=== PATIENT | male | born 1945 | race Caucasian/White ===

== ENCOUNTER → 2020-12-19 | Outpatient (CLI) | payer MEDICARE ==
[~2020-12-19] MED LIST: CENTRUM SILVER1 TAB PO; CLARITIN 1010 MG/TAB PO; COMPAZINE 110 MG/TAB PO; FLOMAX 0.40.4 MG/CAP PO; K-DUR 10 MEQ T10 MEQ PO; LASIX 40MG TABL40 MG PO; LEVAQUIN 5500 MG/TA1 PO; MEGACE ORAL40 MG/ML PO; NATURAL IRON65 MG PO; PREDNISONE 5MG5 MG PO; ROXICODONE 55 MG/TAB PO
== END ==
LOC: COL.RAD
DX: C61 Malignant neoplasm of prostate (principal)
CPT/HCPCS: A9503

== ENCOUNTER → 2021-05-15 | Outpatient (CLI) | payer MEDICARE | LOC: COL.RAD 09:09 | DX: C79.51 Secondary malignant neoplasm of bone (principal); M48.54XA Collapsed vertebra, not elsewhere classified, thoracic region, initial encounter for fracture; R59.0 Localized enlarged lymph nodes; C61 Malignant neoplasm of prostate | CPT/HCPCS: A9503; Q9967 ==

== ENCOUNTER 2021-08-23 07:34 | Outpatient (RCR) | payer MEDICARE ==
[~2021-08-23] VITALS: Ht 185.4 cm; Wt 101.9 kg
[2021-08-23] VITALS (9 sets, daily range): BP systolic 110–124; BP diastolic 60–68; PULSE 91–97; TEMP 98.6–99.9
[2021-08-23] MEDS ORDERED: CENTRUM SILVER1 TAB PO (09:16)
[2021-08-23] MEDS ORDERED: LASIX 40MG TABL40 MG PO (09:17)
[2021-08-23] MEDS ORDERED: NATURAL IRON65 MG PO (09:17)
[2021-08-23] MEDS ORDERED: LEVAQUIN 5500 MG/TA1 PO (09:18)
[2021-08-23] MEDS ORDERED: MEGACE ORAL40 MG/ML PO (09:19)
[2021-08-23] MEDS ORDERED: ROXICODONE 55 MG/TAB PO (09:20)
[2021-08-23] MEDS ORDERED: K-DUR 10 MEQ T10 MEQ PO (09:21)
[2021-08-23] MEDS ORDERED: PREDNISONE 5MG5 MG PO (09:22)
[2021-08-23] MEDS ORDERED: COMPAZINE 110 MG/TAB PO (09:23)
[2021-08-23] MEDS ORDERED: FLOMAX 0.40.4 MG/CAP PO (09:24)
[2021-08-23] MEDS ORDERED: CLARITIN 1010 MG/TAB PO (19:57)
== END 2021-08-23 13:45 | disposition home or self-care (01) ==
LOC: EUO 07:34
DX: C61 Malignant neoplasm of prostate (principal); C77.2 Secondary and unspecified malignant neoplasm of intra-abdominal lymph nodes; C79.51 Secondary malignant neoplasm of bone
CPT/HCPCS: J7050; P9016

== ENCOUNTER 2021-09-27 13:45 | Outpatient (RCR) | payer MEDICARE ==
[2021-09-27] VITALS (9 sets, daily range): BP systolic 116–128; BP diastolic 61–73; PULSE 91–101; TEMP 98.7–99.4
[~2021-09-27] VITALS: Ht 185.4 cm; Wt 102.7 kg
--- NOTE | 2021-09-27 17:46 | NUR ---
Pt tolerated blood transfusions with no problems. Pt was ambulatory in nurses station with steady gait after transfusions were complete. Pt escorted to exit via wheelchair.
== END 2021-09-27 17:47 | disposition home or self-care (01) ==
LOC: EUO 13:45
DX: C61 Malignant neoplasm of prostate (principal); C77.2 Secondary and unspecified malignant neoplasm of intra-abdominal lymph nodes; C79.51 Secondary malignant neoplasm of bone; D64.9 Anemia, unspecified
CPT/HCPCS: J7050; P9016

== ENCOUNTER 2021-10-26 08:30 | Outpatient (RCR) | payer MEDICARE ==
[2021-10-26 08:34] LABS: HEMATOCRIT 24.7 % (42.0-52.0); HEMOGLOBIN 7.6 g/dl (13.5-18.0)
[2021-10-26 09:08] VITALS: BP 127/69; PULSE 87; TEMP 98.7
[2021-10-26 09:26] VITALS: BP 116/70; PULSE 88; TEMP 98.7
[2021-10-26 09:41] VITALS: BP 121/67; PULSE 87; TEMP 98.3
[2021-10-26 10:11] VITALS: BP 117/67; PULSE 83; TEMP 99.4
[2021-10-26 10:51] VITALS: BP 145/72; PULSE 91; TEMP 98.3
--- NOTE | 2021-10-26 11:00 | NUR ---
Pt has tolerated transfusion of 1 unit prbc without any adverse or allergic reactions. We left saline lock to rac in place, as pt will be going to [facility] for chemo at 1300 today. Pt is amb to exit with steady gait.
== END 2021-10-26 11:15 | disposition home or self-care (01) ==
LOC: EDSTATUS 08:30 → EUO 08:30
PROVIDERS: Ophthalmology
DX: D64.9 Anemia, unspecified (principal); C61 Malignant neoplasm of prostate
CPT/HCPCS: J7050; P9016

== ENCOUNTER 2022-05-13 20:05 | Emergency (ER) | payer MEDICARE ==
[~2022-05-13] VITALS: Ht 177.8 cm; Wt 95.5 kg
[2022-05-13 20:11] VITALS: TEMP 97.7
[2022-05-13 21:03] LABS: HEMOGLOBIN 10.5 g/dl (13.5-18.0); MEAN CELL VOLUME 84 fl (80.0-100.0); MEAN CORPUSCULAR HEMOGLOBIN 28 pg (27-31); MEAN CORPUSCULAR HGB CONC 33 g/dl (33.0-37.0); MEAN PLATELET VOLUME 8.8 fl (7.4-10.4); PLATELET COUNT 191 K/mm3 (130-400); RED BLOOD COUNT 3.75 M/mm3 (4.20-5.60); REDCELL DISTRIBUTION WIDTH-CV 16.3 % (11.5-14.5)
[2022-05-13 21:13] LABS: HEMATOCRIT 31.5 % (42.0-52.0)
[2022-05-13 21:28] LABS: ALANINE AMINOTRANSFERASE 9 U/L (0-55); ALBUMIN 2.9 gm/dL (3.4-4.8); ANION GAP 15 mmol/L (7-16); AST,SGOT 99 U/L (5-34); BILIRUBIN,TOTAL 1.1 mg/dL (0.2-1.2); BLOOD UREA NITROGEN 42 mg/dL (8-26); CALCIUM 9.6 mg/dL (8.4-10.2); CARBON DIOXIDE 20 mmol/L (23-31); CHLORIDE 95 mmol/L (98-107); CREATININE, serum 1.62 mg/dL (0.72-1.25); GLUCOSE 103 mg/dL (70-99); POTASSIUM 4.5 mmol/L (3.5-4.5); SODIUM 130 mmol/L (136-145); TOTAL PROTEIN 6.6 gm/dL (6.2-8.1)
[2022-05-13 21:29] LABS: ALKALINE PHOSPHATASE > 4555 U/L (40-150)
[2022-05-13 21:47] LABS: ANISOCYTOSIS 1+; BAND 13 % (0-10); HYPOCHROMIA 1+; LYMPHOCYTE 29 % (20.0-51.0); NEUTROPHILS 39 % (42.0-75.2); OVALOCYTES 1+; PLATELET ESTIMATE NORMAL (NORMAL)
[2022-05-13 21:50] LABS: COLLECTION METHOD CLEAN CATCH
[2022-05-13 21:58] LABS: MUCOUS Present (NOT PRESENT); PH 5 (5-8); SQUAMOUS EPITHELIAL 0-2 /hpf (0-10); URINE APPEARANCE Cloudy (CLEAR/HAZY); URINE BACTERIA None Seen /hpf (NONE SEEN); URINE BLOOD Negative (NEGATIVE); URINE COLOR Amber (YELLOW); URINE GLUCOSE Negative (NEGATIVE); URINE KETONE Trace (NEGATIVE); URINE NITRATE Negative (NEGATIVE); URINE PROTEIN(semi-quant) 2+ (NEGATIVE); URINE RBC 0-2 /hpf (0-2); URINE UROBILINOGEN Negative (NEGATIVE)
[2022-05-14] MEDS ORDERED: ZOFRAN 4MG T4 MG/TAB PO (00:55)
[2022-05-14 01:07] VITALS: BP 133/77; PULSE 92
== END 2022-05-14 01:07 | disposition home or self-care (01) ==
LOC: COL.ER 20:05
PROVIDERS: Family Medicine
DX: C61 Malignant neoplasm of prostate (principal); E86.0 Dehydration
CPT/HCPCS: J7030

== ENCOUNTER 2022-06-10 21:40 | Emergency (ER) | payer MEDICARE ==
[~2022-06-10] VITALS: Ht 185.4 cm; Wt 99.1 kg
[~2022-06-10 21:40] MED LIST changes: +ZOFRAN 4MG T4 MG/TAB PO
[2022-06-10 22:29] LABS: BASO % 0.4 % (0.0-2.0); EOS % 0.3 % (0.0-4.0); GRAN % 75.8 % (42.2-75.2); LYMPH # 0.8 K/mm3 (1.2-3.4); LYMPH % 10.2 % (20.0-51.0); MEAN CELL VOLUME 87 fl (80.0-100.0); MEAN CORPUSCULAR HGB CONC 31 g/dl (33.0-37.0); MEAN PLATELET VOLUME 8.3 fl (7.4-10.4); MONO % 12.9 % (1.7-9.3); PLATELET COUNT 275 K/mm3 (130-400); RED BLOOD COUNT 3.43 M/mm3 (4.20-5.60); REDCELL DISTRIBUTION WIDTH-CV 17.2 % (11.5-14.5)
[2022-06-10 22:39] LABS: HEMATOCRIT 29.7 % (42.0-52.0); HEMOGLOBIN 9.2 g/dl (13.5-18.0); MEAN CORPUSCULAR HEMOGLOBIN 27 pg (27-31)
[2022-06-10 22:51] LABS: ALBUMIN 2.7 gm/dL (3.4-4.8); BILIRUBIN,TOTAL 0.7 mg/dL (0.2-1.2); CALCIUM 9.5 mg/dL (8.4-10.2); CREATININE, serum 0.84 mg/dL (0.72-1.25); POTASSIUM 3.9 mmol/L (3.5-4.5); TOTAL PROTEIN 6.4 gm/dL (6.2-8.1)
[2022-06-11 01:15] VITALS: BP 122/60; PULSE 110; TEMP 99.8
== END 2022-06-11 02:03 | disposition home or self-care (01) ==
LOC: COL.ER 21:40
PROVIDERS: Nurse Practitioner Primary Care
DX: M79.10 Myalgia, unspecified site (principal); Z87.891 Personal history of nicotine dependence; Z20.822 Contact with and (suspected) exposure to COVID-19
CPT/HCPCS: J2270